=== PATIENT | male | born 1990 | race Caucasian/White ===

== ENCOUNTER 2021-11-20 11:07 | Emergency (ER) | payer BC, OTHER ==
[2021-11-20] MEDS ORDERED: Lidocaine 1% 5 ML VIAL INJECT ONE (11:42)
[2021-11-20] MEDS ORDERED: Diphtheria,Pertussis(Acell),Tetanus Vaccine 0.5 ML Syringe IM ONE (11:46)
[2021-11-20] MEDS ORDERED: Bacitracin Oint 1 GM U/D Packet TOP ONE (11:46)
== END 2021-11-20 12:35 | disposition home or self-care (01) ==
LOC: DL.ED 11:07
DX: S61.411A Laceration without foreign body of right hand, initial encounter (principal); Z23 Encounter for immunization; W26.0XXA Contact with knife, initial encounter
CPT/HCPCS: 12001; 90471; 90715; 99282; 99282-25